=== PATIENT | male | born 1970 | race Caucasian/White ===

== ENCOUNTER 2019-01-29 07:59 | Day surgery (SDC) | payer OTHER ==
[2019-01-28 14:19] VITALS: BMI 32.9
[2019-01-29 08:41] VITALS: TEMP 98.4
[2019-01-29 10:16] VITALS: PULSE 59
[2019-01-29 11:27] VITALS: BP 136/75
--- NOTE | 2019-02-03 08:52 | PATH ---
Surgical Pathology Report Patient Name: BERRY BA [facility]. Rec. #: [id number] /Age/Gender: 1970 (Age: 48) / M Account: [id number] Location: [facility] Taken: 01/29/2019 Received: 01/29/2019 Reported: 02/03/2019 Physicians: Maribel Steele M.D. Specimen(s) Received A: DUODENUM SECOND PORTION AND BULB B: GASTRIC FUNDUS POLYP C: ANTRUM D: DISTAL AND MID ESOPHAGUS Clinical History Dysplasia, acid reflux Postoperative diagnosis: Hiatal hernia, duodenitis Final Diagnosis A. DUODENUM, SECOND PORTION AND BULB, BIOPSY: DUODENAL MUCOSA WITH MILD CHRONIC DUODENITIS AND LAMINA PROPRIA HEMORRHAGE. B. GASTRIC FUNDUS POLYP, BIOPSY: FUNDIC GLAND POLYP IMMUNOHISTOCHEMICAL STAIN FOR H. PYLORI IS NEGATIVE. C. STOMACH, ANTRUM, BIOPSY: GASTRIC ANTRAL MUCOSA WITH MILD CHRONIC GASTRITIS. IMMUNOHISTOCHEMICAL STAIN FOR H. PYLORI IS NEGATIVE. D. DISTAL AND MID ESOPHAGUS, BIOPSY: SQUAMOUS MUCOSA WITH MILD TO MODERATE REFLUX TYPE ESOPHAGITIS. NO COLUMNAR MUCOSA, INTESTINAL METAPLASIA, OR DYSPLASIA IDENTIFIED. Electronically Signed Sanjana Stokes M.D. Gross Description A. Received in formalin, labeled "second portion and duodenum bulb" are three plasencia, irregular portions of soft tissue measuring 0.2 to 0.4 cm. in greatest dimension. The specimens are submitted in toto in one cassette. B. Received in formalin, labeled "gastric fundus polyp" is a plasencia, irregular portion of soft tissue measuring 0.3 cm. in greatest dimension. The specimen is submitted in toto in one cassette. C. Received in formalin, labeled "antrum" is a plasencia, irregular portion of soft tissue measuring 0.3 cm. in greatest dimension. The specimen are submitted in toto in one cassette. D. Received in formalin, labeled "distal and mid esophagus" are 2 plasencia, irregular portion of soft tissue measuring 0.1 and 0.3 cm. in greatest dimension. The specimens are submitted in toto in one cassette. KWBenjamin/01/29/2019 elieser/01/29/2019
== END 2019-01-29 11:02 | disposition home or self-care (01) ==
LOC: JASU-ENDO 07:59
PROVIDERS: ATTEND Internal Medicine Gastroenterology
PROC: 0DB68ZX Excision of Stomach, Via Natural or Artificial Opening Endoscopic, Diagnostic (ICD-10-PCS; 2019-01-29)
PROC: 0DB58ZX Excision of Esophagus, Via Natural or Artificial Opening Endoscopic, Diagnostic (ICD-10-PCS; 2019-01-29)
PROC: 0DB98ZX Excision of Duodenum, Via Natural or Artificial Opening Endoscopic, Diagnostic (ICD-10-PCS; principal; 2019-01-29 09:30)
DX: K21.9 Gastro-esophageal reflux disease without esophagitis (principal); K31.7 Polyp of stomach and duodenum; K29.50 Unspecified chronic gastritis without bleeding; K29.80 Duodenitis without bleeding; K21.0 Gastro-esophageal reflux disease with esophagitis; I10 Essential (primary) hypertension; F41.9 Anxiety disorder, unspecified; R13.10 Dysphagia, unspecified
CPT/HCPCS: 88305-TC; 88342-TC

== ENCOUNTER 2021-12-09 04:27 | Day surgery (SDC) | payer OTHER ==
[2021-12-07 08:33] VITALS: BMI 32.3
[2021-12-09 13:02] VITALS: TEMP 97
[2021-12-09 13:59] VITALS: BP 111/68; PULSE 59; RESP 16
== END 2021-12-09 13:45 | disposition home or self-care (01) ==
LOC: JASU-ENDO 04:27
PROVIDERS: ATTEND Internal Medicine Gastroenterology
PROC: 0DBK8ZX Excision of Ascending Colon, Via Natural or Artificial Opening Endoscopic, Diagnostic (ICD-10-PCS; principal; 2021-12-09 11:00)
DX: Z12.11 Encounter for screening for malignant neoplasm of colon (principal); Z86.010 Personal history of colon polyps; D12.2 Benign neoplasm of ascending colon
CPT/HCPCS: 88305-TC